=== PATIENT | male | born 1950 | race Caucasian/White ===

== ENCOUNTER → 2016-07-11 | Outpatient (CLI) | payer OTHER ==
[~2016-07-11] MED LIST: ACET-1256 PO; ASPI-232 PO; ATOR-54 PO; FINA5TAB PO; METO50TA16 PO
--- NOTE | 2016-07-11 18:39 | DIAGNOSTIC IMAGING REPORT ---
CHEST 2 VIEWS ROUTINE CLINICAL HISTORY: Renal cell carcinoma. COMPARISON STUDY: Chest CT February 21, 2015. FINDINGS: Lung volumes are at the lower limits of normal. This is unchanged. Cardiomediastinal silhouette is stable. There is no evidence of pulmonary edema. No airspace opacities are identified. No pulmonary nodules are identified although sensitivity is diminished given radiographic technique. The appearance of the chest is unchanged. IMPRESSION: 1. No acute findings. 2. No radiographic evidence of metastatic disease within the chest. Electronically signed by: Tito Benz M.D. 07/11/2016 6:38 PM Dictated Date/Time: 07/11/2016 6:37 PM
[2016-07-11 18:42] LABS: ALT/SGPT 41 U/L (12-78); AST/SGOT 17 U/L (15-37); BLOOD UREA NITROGEN 21 mg/dl (7-18); BUN/CREATININE RATIO 20.6 (10-20); CALCIUM 8.9 mg/dl (8.5-10.1); CARBON DIOXIDE 29 mmol/L (21-32); CHLORIDE 110 mmol/L (98-107); GLUCOSE 89 mg/dl (70-99); POTASSIUM 4.4 mmol/L (3.5-5.1); SODIUM 144 mmol/L (136-145)
[2016-07-11 18:45] LABS: ALB/GLOB RATIO 1.1 (0.9-2); ALKALINE PHOSPHATASE 105 U/L (45-117)
== END | disposition home or self-care (01) ==
LOC: C.LAB 17:38
PROVIDERS: ATTEND Urology
DX: N40.1 Benign prostatic hyperplasia with lower urinary tract symptoms (principal); C64.9 Malignant neoplasm of unspecified kidney, except renal pelvis

== ENCOUNTER → 2017-02-15 | Outpatient (CLI) | payer OTHER ==
--- NOTE | 2017-02-15 10:31 | DIAGNOSTIC IMAGING REPORT ---
TWO VIEW CHEST CLINICAL HISTORY: Renal cell carcinoma. FINDINGS: PA and lateral chest radiographs are compared to study dated 07/11/2016 and correlated with chest CT dated 02/21/2015. The heart is mildly enlarged and there is atherosclerotic calcification of the thoracic aorta. The pulmonary vasculature is noncongested. Chronic interstitial thickening is similar to previous. No pulmonary nodule is identified by chest x-ray. The lungs and pleural spaces are clear. There is no pneumothorax. The skeletal structures are osteopenic. The bony thorax appears intact. IMPRESSION: Mild cardiac enlargement with no active disease in the chest. Electronically signed by: Car Barnett M.D. 02/15/2017 10:29 AM Dictated Date/Time: 02/15/2017 10:26 AM
[2017-02-15 12:37] LABS: ALT/SGPT 28 U/L (12-78); AST/SGOT 16 U/L (15-37); BLOOD UREA NITROGEN 21 mg/dl (7-18); BUN/CREATININE RATIO 20.8 (10-20); CARBON DIOXIDE 28 mmol/L (21-32); CHLORIDE 107 mmol/L (98-107); CREATININE 0.99 mg/dl (0.60-1.40); GLUCOSE 95 mg/dl (70-99); POTASSIUM 4.3 mmol/L (3.5-5.1); SODIUM 141 mmol/L (136-145)
[2017-02-15 12:46] LABS: ALB/GLOB RATIO 1.1 (0.9-2); ALKALINE PHOSPHATASE 88 U/L (45-117)
== END | disposition home or self-care (01) ==
LOC: C.RAD 09:36
PROVIDERS: ATTEND Urology
DX: C64.9 Malignant neoplasm of unspecified kidney, except renal pelvis (principal); D49.519 Neoplasm of unspecified behavior of unspecified kidney; N45.1 Epididymitis; R33.9 Retention of urine, unspecified; R97.20 Elevated prostate specific antigen [PSA]

== ENCOUNTER → 2017-02-22 | Outpatient (CLI) | payer OTHER ==
[~2017-02-22] MED LIST changes: +GADAVIST IV PRN
--- NOTE | 2017-02-22 09:18 | DIAGNOSTIC IMAGING REPORT ---
MRI OF THE ABDOMEN COMBO CLINICAL HISTORY: Incomplete bladder emptying. Elevated PSA. Renal cell carcinoma. COMPARISON STUDY: Abdominal CT dated 12/09/2015 01/16/2015. Abdominal MRI dated 06/24/2015. TECHNIQUE: MRI of the abdomen is performed transverse T1 and T2-weighted sequences in the axial and coronal planes. Contrast enhanced sequences were acquired following the IV administration of 8.5 cc of Gadavist. Subtraction imaging was performed. The examination is modestly degraded by motion artifact. FINDINGS: Lower chest: No pleural effusion is identified. The heart is normal in size. The lung bases are clear as visualized. These are not well assessed by MRI. A small hiatal hernia is noted. Liver: The visualized hepatic parenchyma is normal in size, contour, and signal intensity. Three presumed hemangiomas in the right lobe of the liver are again noted, only seen on the coronal view chest sequence. Gallbladder: Unremarkable. Spleen: Normal in size and signal intensity. Pancreas: The pancreas mildly atrophic but otherwise normal in appearance. Adrenal glands: Unremarkable. Kidneys: The kidneys are normal in size. Moderate right hydronephrosis persists. There is no left-sided hydronephrosis. The kidneys enhance and excrete symmetrically. Parapelvic cysts, subcentimeter cortical cysts, and a 2.5 cm exophytic cyst on the left are unchanged from previous. Postoperative changes are again seen along the posteromedial aspect of the interpolar right kidney consistent with previous mass resection. There is no evidence of recurrent/residual enhancing mass lesion at the operative site. There is extensive surrounding change in the adjacent retroperitoneal fat. This is nonmasslike but demonstrates thick enhancing septations, and likely represents evolving fat necrosis. This appears decreased in size from 06/24/2015. No enhancing mass lesion is suggested in the left kidney. A 12 mm T1 hyperintense lesion is again seen arising from the upper pole the right kidney. Faint apparent enhancement along the anterior margin is almost certainly related to motion artifact. This is only seen on one of the postcontrast series. Abdominal aorta: Normal in course and caliber. Bowel: Visualized portions of the small bowel and colon show no evidence of obstruction. Colonic fecal retention is noted. Peritoneum: There is no abdominal ascites. Lymphadenopathy: There is no retroperitoneal, mesenteric, or upper abdominal lymphadenopathy identified. Skeletal structures: No destructive bony lesions are suspected. IMPRESSION: 1. There are postoperative changes from right renal mass resection. There is no evidence of recurrent/residual enhancing lesion at the operative site. 2. Again seen are postoperative changes within the right perirenal fat adjacent to the resection margin. This demonstrates enhancing septations with no discrete mass lesion identified. This has decreased in size from previous and likely represents evolving fat necrosis. 3. A 12 mm lesion arising from the upper pole of the right kidney likely represents a complex/hemorrhagic cyst and is not significantly changed from previous. Faint apparent enhancement along its anterior margin seen on only one sequence is almost certainly related to motion artifact. Attention at follow-up is recommended. 4. Right hydronephrosis persists. 5. Three small hepatic lesions are partially characterized and unchanged. These likely represent small hemangiomas. Electronically signed by: Car Barnett M.D. 02/22/2017 9:17 AM Dictated Date/Time: 02/22/2017 8:53 AM
== END | disposition home or self-care (01) ==
LOC: C.MRI 07:39
PROVIDERS: ATTEND Urology
DX: C64.9 Malignant neoplasm of unspecified kidney, except renal pelvis (principal); D49.519 Neoplasm of unspecified behavior of unspecified kidney; N13.30 Unspecified hydronephrosis; R33.9 Retention of urine, unspecified; R97.20 Elevated prostate specific antigen [PSA]; N45.1 Epididymitis; K76.9 Liver disease, unspecified

== ENCOUNTER → 2017-05-14 | Outpatient (CLI) | payer OTHER ==
--- NOTE | 2017-05-14 15:20 | DIAGNOSTIC IMAGING REPORT ---
PROSTATE MRI COMBO CLINICAL HISTORY: 67 years-old Male presenting with R97.20 Elevated PSA TECHNIQUE: Multisequence, multiplanar MR imaging of the prostate was performed before and after the administration of intravenous contrast. Additional postprocessing was performed on a separate [employer] workstation by the radiologist for 3-D volumetric segmentation of the prostate and contouring of region(s) of interest (AMADO) for targeting. IV contrast: 9 mL. COMPARISON: None FINDINGS: Prostate: The prostate measures 4.5 x 4.6 x 6.8 cm ([employer] prostate boundary segmentation volume 73.6 mL). Severe changes of benign prostatic hyperplasia. Precontrast T1 weighted imaging demonstrates no evidence of intrinsic T1 hyperintensity to suggest hemorrhage. Seminal vesicles normal. Suspicious lesion(s) described below: Lesion ([employer] AMADO) : No suspicious lesions identified. Bladder: Bladder wall thickening likely indicating chronic outlet obstruction. Bowel: Visualized portion of the rectum normal. Peritoneum: No free fluid in the pelvis. Lymph nodes: No lymphadenopathy in the visualized portion of the pelvis. Vasculature: Iliac vessels patent. Abdominal wall: Normal. Osseous structures: Normal bone marrow signal intensity. IMPRESSION: 1. No suspicious lesions identified. 2. Severe changes of benign prostatic hyperplasia with evidence of chronic bladder outlet obstruction. Electronically signed by: Thomas Donaldson M.D. 05/14/2017 3:18 PM Dictated Date/Time: 05/14/2017 2:27 PM
== END | disposition home or self-care (01) ==
LOC: C.MRIBC 12:51
PROVIDERS: ATTEND Urology
DX: R97.20 Elevated prostate specific antigen [PSA] (principal); N40.1 Benign prostatic hyperplasia with lower urinary tract symptoms